=== PATIENT | male | born 1965 | race Caucasian/White ===

== ENCOUNTER 2018-10-29 17:29 | Emergency (ER) | payer MEDICAID ==
[~2018-10-29] VITALS: Ht 177.8 cm; Wt 71.7 kg
[2018-10-29] MEDS ORDERED: FURO-151 PO (17:45)
[2018-10-29] MEDS ORDERED: PANTOPRAZOLE SODIUM 40 MG VIAL ONE (17:56)
[2018-10-29] MEDS ORDERED: ONDANSETRON 4 MG/2 ML VIAL ONE (17:59)
[2018-10-29] MEDS ORDERED: ONDANSETRON 4 MG/2 ML VIAL IV ONE (18:00)
[2018-10-29] MEDS ORDERED: PANTOPRAZOLE SODIUM 40 MG VIAL IV ONE (18:00)
[2018-10-29] MEDS ORDERED: IV NORMAL SALINE 1000 ML BAG IV ONE (18:00)
--- NOTE | 2018-10-29 18:12 | NUR ---
PT A/OX4, PRESENTS TO THE ER C/O 1 EPISODE OF VOMITING THIS AM AT 0400. PT REPORTS THE COLOR OF THE EMESIS WAS DARK W/ A "THICK" CONSISTENCY. PT DENIES NAUSEA AT THIS TIME. VSS. PT DENIES C/P, SOB, DIZZINESS, HEADACHE.
[2018-10-29 18:17] LABS: BASOPHILS # (AUTO) 0.1 K/uL (0.0-8.0); BASOPHILS % (AUTO) 0.8 % (0.0-2.0); EOSINOPHILS # (AUTO) 0.1 K/uL (0.0-0.7); HEMATOCRIT 30.8 % (36.7-47.1); HEMOGLOBIN 10.3 g/dL (12.5-16.3); LYMPHOCYTES # (AUTO) 1.1 K/uL (20.0-40.0); LYMPHOCYTES % (AUTO) 13.1 % (20.5-51.5); MEAN CORPUSCULAR HEMOGLOBIN 31.1 uug (23.8-33.4); MEAN CORPUSCULAR HGB CONC 34 g/dL (32.5-36.3); MEAN CORPUSCULAR VOLUME 92.8 fL (73.0-96.2); MONOCYTES # (AUTO) 0.8 K/uL (2.0-10.0); MONOCYTES % (AUTO) 9.5 % (0.0-11.0); NEUTROPHILS # (AUTO) 6.1 K/uL (1.8-8.9); NEUTROPHILS % (AUTO) 75.6 % (38.5-71.5); PLATELET COUNT (AUTO) 125 K/uL (152-348); RED BLOOD CELL COUNT(AUTO) 3.31 MIL/uL (4.06-5.63); WHITE BLOOD COUNT (AUTO) 8.1 K/uL (3.6-10.2)
[2018-10-29 18:22] LABS: CARBON DIOXIDE 23 mmol/L (21-32); CHLORIDE 101 mmol/L (98-107); CREATININE 0.5 mg/dL (0.6-1.3); GLUCOSE 95 mg/dL (74-106); POTASSIUM 3.7 mmol/L (3.5-5.1); UREA NITROGEN, BLOOD 24 mg/dL (7-18)
[2018-10-29 18:28] LABS: ALANINE AMINOTRANSFERASE 60 U/L (16-63); ALKALINE PHOSPHATASE 134 U/L (50-136); ASPARTATE AMINOTRANSFERASE 77 U/L (15-37); BILIRUBIN,DIRECT 0.5 mg/dL (0.0-0.2); BILIRUBIN,TOTAL 1.3 mg/dL (0.2-1.0); TOTAL PROTEIN, SERUM 6.8 g/dL (6.4-8.2)
--- NOTE | 2018-10-29 19:09 | NUR ---
SHIFT REPORT GIVEN TO JOHNY Barbour RN.
--- NOTE | 2018-10-29 19:13 | NUR ---
Pt went down to radiology dept for CT scan.
[2018-10-29 19:18] LABS: *BILIRUBIN,URIN NEGATIVE (NEGATIVE); *BLOOD, URINE NEGATIVE (NEGATIVE); *CLARITY,URINE CLEAR (CLEAR); *COLOR,URINE YELLOW (YELLOW); *KETONES,URINE NEGATIVE (NEGATIVE); *UROBILINOGEN,URINE 0.2 E.U./dl (NORMAL); LEUKOCYTE ESTERASE ,URINE NEGATIVE (NEGATIVE); NITRITE, URINE NEGATIVE (NEGATIVE); UGLUCOSE NEGATIVE (NEGATIVE)
[2018-10-29 19:30] LABS: WBC,URINE NONE SEEN /HPF (0-3)
--- NOTE | 2018-10-29 19:41 | NUR ---
Pt back from radiology dept placed back in room 04B. Appears in no apparent distress. IV fluids infusing.
--- NOTE | 2018-10-29 20:25 | NUR ---
IV removed. Catheter intact and site benign. Pressure and 4x4 gauze applied to site. No bleeding noted.
--- NOTE | 2018-10-29 20:31 | NUR ---
Pt has friend to pick him up
--- NOTE | 2018-10-29 20:31 | NUR ---
Patient discharged to home in stable conditon. Written and verbal after care instructions given. Patient verbalizes understanding of instructions. Pt ambulated out of ER in stable gait. Pt is AAOx4. Pt states he feels better. All belongings w pt. VSS. NAD noted.
[2018-10-29 20:32] VITALS: BP 123/73
== END 2018-10-29 20:33 | disposition home or self-care (01) ==
LOC: ER 17:29
DX: K52.9 Noninfective gastroenteritis and colitis, unspecified (principal); Z79.899 Other long term (current) drug therapy
CPT/HCPCS: 36415; 71045; 74176; 80048; 80076; 81001; 83690; 85025; 85730; 86850; 86900; 86901; 93005; 96361; 96374; 96375; 99284; C9113; J2405; A4663; J7030

== ENCOUNTER 2018-11-11 19:18 | Emergency (ER) | payer MEDICAID ==
[~2018-11-11] VITALS: Ht 177.8 cm; Wt 70.3 kg
[~2018-11-11 19:18] MED LIST: FURO-151 PO
[2018-11-11] MEDS ORDERED: PANT40TA2 PO (19:34)
[2018-11-11] MEDS ORDERED: METH-33 PO (19:34)
[2018-11-11] MEDS ORDERED: SPIR25TA PO (19:34)
[2018-11-11 20:42] LABS: BASOPHILS % (AUTO) 0.5 % (0.0-2.0); EOSINOPHILS # (AUTO) 0.1 K/uL (0.0-0.7); EOSINOPHILS % (AUTO) 2.3 % (0.0-7.0); HEMATOCRIT 23.4 % (36.7-47.1); HEMOGLOBIN 7.9 g/dL (12.5-16.3); LYMPHOCYTES # (AUTO) 0.6 K/uL (20.0-40.0); LYMPHOCYTES % (AUTO) 14.7 % (20.5-51.5); MEAN CORPUSCULAR HEMOGLOBIN 30.5 uug (23.8-33.4); MEAN CORPUSCULAR HGB CONC 34 g/dL (32.5-36.3); MEAN CORPUSCULAR VOLUME 90.8 fL (73.0-96.2); MONOCYTES # (AUTO) 0.4 K/uL (2.0-10.0); MONOCYTES % (AUTO) 10.4 % (0.0-11.0); NEUTROPHILS # (AUTO) 2.9 K/uL (1.8-8.9); NEUTROPHILS % (AUTO) 72.1 % (38.5-71.5); PLATELET COUNT (AUTO) 176 K/uL (152-348); RED BLOOD CELL COUNT(AUTO) 2.58 MIL/uL (4.06-5.63)
[2018-11-11 20:51] LABS: ALANINE AMINOTRANSFERASE 43 U/L (16-63); ALKALINE PHOSPHATASE 156 U/L (50-136); ASPARTATE AMINOTRANSFERASE 50 U/L (15-37); BILIRUBIN,DIRECT 0.4 mg/dL (0.0-0.2); BILIRUBIN,TOTAL 0.8 mg/dL (0.2-1.0); CARBON DIOXIDE 27 mmol/L (21-32); CHLORIDE 100 mmol/L (98-107); CREATININE 0.6 mg/dL (0.6-1.3); GLUCOSE 97 mg/dL (74-106); LIPASE 203 U/L (73-393); POTASSIUM 3.5 mmol/L (3.5-5.1); TOTAL PROTEIN, SERUM 6.1 g/dL (6.4-8.2); UREA NITROGEN, BLOOD 6 mg/dL (7-18)
--- NOTE | 2018-11-11 21:52 | NUR ---
Patient discharged to home in stable conditon. Written and verbal after care instructions given. Patient verbalizes understanding of instructions. Patient ambulated with stable gait.
[2018-11-11 21:53] VITALS: BP 105/72
== END 2018-11-11 21:53 | disposition home or self-care (01) ==
LOC: ER 19:19
DX: K74.60 Unspecified cirrhosis of liver (principal); D64.9 Anemia, unspecified; Z79.899 Other long term (current) drug therapy
CPT/HCPCS: 36415; 70030-TC; 71045; 83690; 85025; 85730; 86850; 86900; 86901; 93005; A4663

== ENCOUNTER 2019-06-21 20:55 | Emergency (ER) | payer MEDICAID ==
[~2019-06-21] VITALS: Ht 177.8 cm; Wt 69.4 kg
[~2019-06-21 20:55] MED LIST changes: +METH-33 PO; +PANT40TA2 PO; +SPIR25TA PO
--- NOTE | 2019-06-21 21:28 | NUR ---
Patient ambulating with steady gait. A&O x4. pt stating needs to check blood work. has hx of GI bleed. denies any / GI distress. denies any pain or discomfort. speech clear and able to make needs known / follow commands. Breathing even and unlabored. Denies any SOB.
[2019-06-21 21:34] LABS: CARBON DIOXIDE 28 mmol/L (21-32); CHLORIDE 105 mmol/L (98-107); CREATININE 0.6 mg/dL (0.6-1.3); GLUCOSE 99 mg/dL (74-106); POTASSIUM 3.8 mmol/L (3.5-5.1); UREA NITROGEN, BLOOD 10 mg/dL (7-18)
[2019-06-21 21:37] LABS: BASOPHILS % (AUTO) 0.5 % (0.0-2.0); EOSINOPHILS # (AUTO) 0.1 K/uL (0.0-0.7); EOSINOPHILS % (AUTO) 3.3 % (0.0-7.0); HEMOGLOBIN 10.4 g/dL (12.5-16.3); LYMPHOCYTES # (AUTO) 0.4 K/uL (20.0-40.0); LYMPHOCYTES % (AUTO) 13.9 % (20.5-51.5); MEAN CORPUSCULAR HEMOGLOBIN 30.4 uug (23.8-33.4); MEAN CORPUSCULAR HGB CONC 33 g/dL (32.5-36.3); MEAN CORPUSCULAR VOLUME 93.6 fL (73.0-96.2); MONOCYTES # (AUTO) 0.3 K/uL (2.0-10.0); MONOCYTES % (AUTO) 10.1 % (0.0-11.0); NEUTROPHILS # (AUTO) 2.1 K/uL (1.8-8.9); NEUTROPHILS % (AUTO) 72.2 % (38.5-71.5); RED BLOOD CELL COUNT(AUTO) 3.42 MIL/uL (4.06-5.63); WHITE BLOOD COUNT (AUTO) 2.8 K/uL (3.6-10.2)
[2019-06-21 21:38] LABS: PLATELET COUNT (AUTO) 68 K/uL (152-348)
[2019-06-21 21:48] LABS: ALANINE AMINOTRANSFERASE 31 U/L (16-63); ALKALINE PHOSPHATASE 147 U/L (50-136); ASPARTATE AMINOTRANSFERASE 43 U/L (15-37); BILIRUBIN,DIRECT 0.4 mg/dL (0.0-0.2); BILIRUBIN,TOTAL 1.2 mg/dL (0.2-1.0); LIPASE 5714 U/L (73-393); TOTAL PROTEIN, SERUM 7.7 g/dL (6.4-8.2)
[2019-06-21 21:53] LABS: BAND % (MANUAL) 3 % (0-10); EOSINOPHILS % (MANUAL) 4 % (0-8); LYMPHOCYTES % (MANUAL) 15 % (20-40); MONOCYTES % (MANUAL) 7 % (2-10); NEUTROPHILS % (MANUAL) 71 % (42-75)
--- NOTE | 2019-06-21 23:19 | NUR ---
Patient discharged to home in stable conditon. Written and verbal after care instructions given. Patient verbalizes understanding of instructions. pt ambulating with steady gait
[2019-06-21 23:20] VITALS: BP 128/69
== END 2019-06-21 23:19 | disposition home or self-care (01) ==
LOC: ER 20:59
DX: K85.90 Acute pancreatitis without necrosis or infection, unspecified (principal); D53.9 Nutritional anemia, unspecified; K74.60 Unspecified cirrhosis of liver; Z79.899 Other long term (current) drug therapy
CPT/HCPCS: 36415; 70030-TC; 83690; 85025; 85730; A4663

== ENCOUNTER 2021-11-03 14:28 | Emergency (ER) | payer MEDICAID ==
[~2021-11-03] VITALS: Ht 177.8 cm; Wt 79.4 kg
--- NOTE | 2021-11-03 15:00 | NUR ---
Assumed care of patient from YOBANY Eastman.
--- NOTE | 2021-11-03 15:09 | NUR ---
Dr. Khan on bedside for MSE.
[2021-11-03] MEDS ORDERED: [UNRECOGNIZED DRUG - CODE] PO (15:26)
[2021-11-03] MEDS ORDERED: ACETAMINOPHEN 325 MG TABLET ONE (15:29)
[2021-11-03] MEDS ORDERED: ACETAMINOPHEN 325 MG TABLET PO ONE (15:30)
--- NOTE | 2021-11-03 16:06 | NUR ---
Patient back to room from CT.
--- NOTE | 2021-11-03 16:34 | NUR ---
Called [facility] to follow up Pelvis CT result.
--- NOTE | 2021-11-03 17:23 | NUR ---
Patient discharged to home in stable condition. Written and verbal after care instructions given. Patient verbalizes understanding of instructions. Stressed follow up or return to ER for worsening s/s. Patient ambulated fr the ER with steady gait. All belongings with patient.
[2021-11-03 17:24] VITALS: BP 140/90
== END 2021-11-03 17:24 | disposition home or self-care (01) ==
LOC: ER 14:28
DX: M25.552 Pain in left hip (principal); Z94.4 Liver transplant status; Z79.899 Other long term (current) drug therapy; Z86.74 Personal history of sudden cardiac arrest; M16.0 Bilateral primary osteoarthritis of hip; M76.9 Unspecified enthesopathy, lower limb, excluding foot
CPT/HCPCS: 72192; A4663